=== PATIENT | female | born 1960 | race African-American/Black ===

== ENCOUNTER 2021-11-03 13:30 | Outpatient (CLI) | payer OTHER | END 2021-11-03 13:31 | disposition home or self-care (01) | LOC: CSHMAMMO 13:30 | PROVIDERS: ATTEND Physician Assistant | DX: Z12.31 Encounter for screening mammogram for malignant neoplasm of breast (principal); Z80.3 Family history of malignant neoplasm of breast | CPT/HCPCS: 77067 ==

== ENCOUNTER 2021-11-03 13:59 | Outpatient (CLI) | payer OTHER | END 2021-11-03 14:00 | disposition home or self-care (01) | LOC: CSHULT 13:59 | PROVIDERS: ATTEND Physician Assistant | DX: M79.661 Pain in right lower leg (principal) | CPT/HCPCS: 93922 ==

== ENCOUNTER 2022-02-15 12:18 | Outpatient (CLI) | payer OTHER | END 2022-02-15 12:19 | disposition home or self-care (01) | LOC: CSHCP 12:18 | PROVIDERS: ATTEND Internal Medicine Pulmonary Disease | DX: R06.00 Dyspnea, unspecified (principal) | CPT/HCPCS: 94060; 94726; 94729; 94760 ==

== ENCOUNTER 2023-04-10 15:04 | Outpatient (CLI) | payer OTHER | END 2023-04-10 15:05 | disposition home or self-care (01) | LOC: CSHMAMMO 15:04 | PROVIDERS: ATTEND Internal Medicine | DX: Z12.31 Encounter for screening mammogram for malignant neoplasm of breast (principal); Z80.3 Family history of malignant neoplasm of breast | CPT/HCPCS: 77067 ==